=== PATIENT | male | born 1960 | race Caucasian/White ===

== ENCOUNTER 2016-07-16 10:44 | Day surgery (SDC) | payer OTHER ==
[2016-07-14 16:10] LABS: Basophils # (auto) 0 uL; Basophils % (auto) 0.5 % (0.0-2.0); DEFINITIVE VIEW TRANSMISSION; Eosinophils # (auto) 0.2 uL; Eosinophils % (auto) 2.2 % (0.0-7.0); Hematocrit 42.8 % (41.0-53.0); Hemoglobin 13.4 g/dL (13.5-17.5); Lymphocytes # (auto) 2.6 uL; Lymphocytes % (auto) 30.1 % (10.0-50.0); Mean Corpuscular Hemoglobin 26.1 pg (28.0-32.0); Mean Corpuscular Hgb Conc. 31.4 g/dL (32.0-36.0); Mean Corpuscular Volume 83.4 fL (80.0-100.0); Monocytes # (auto) 0.5 uL; Monocytes % (auto) 5.4 % (0.0-12.0); Neutrophils # (auto) 5.4 uL; Neutrophils % (auto) 61.8 % (37.0-80.0); Platelet Count (auto) 449 10^3/uL (140-450); Red Cell Distribution Width 14.7 % (11.6-16.0); White Blood Cell 8.7 10^3/uL (4.4-10.8)
[2016-07-14 16:19] LABS: BUN/Creatinine Ratio 17.2; Calcium 9.5 mg/dL (8.5-10.1); Potassium 4.9 mmol/L (3.5-5.1)
[2016-07-14 16:26] LABS: Urine Bilirubin Negative (Negative); Urine Color Yellow (Yellow); Urine Glucose Normal (Normal); Urine Ketone Negative (Negative); Urine Mucus FEW (None Seen); Urine RBC 18 /hpf (0 - 3); Urine Urobilinogen Normal (Negative)
[2016-07-14 16:28] LABS: INR 1.08 (0.9-1.15); Partial Thromboplastin Time 33.8 sec (22.64-33.71); Prothrombin Time 11.1 sec (9.37-12.3)
[2016-07-14 16:35] LABS: Urine Blood 1+ /uL (Negative); Urine Nitrite POSITIVE (Negative)
[~2016-07-16] VITALS: Ht 198.1 cm; Wt 104.3 kg
[~2016-07-16 10:44] MED LIST: ASPI325T4 PO; GLYB5TAB8 PO; LEVO25TA6 PO; METO25TA5 PO; TAMS0.4C36 PO
[2016-07-16] MEDS ORDERED: ceFAZolin 1GM/50ML D5W 50 ML IV ONE (12:25)
[2016-07-16] MEDS ORDERED: LIDOCAINE 2% JELLY 11ml (GLYDO) ONE (14:25)
[2016-07-16] MEDS ORDERED: PROPOFOL 10 MG/ML 20 ML IV ONE (14:38)
[2016-07-16] MEDS ORDERED: MIDAZOLAM HCL 1MG/1ML-2 ML VIAL ONE (14:38)
[2016-07-16] MEDS ORDERED: fentaNYL CITRATE 100 MCG/2 ML VL ONE (14:38)
[2016-07-16] MEDS ORDERED: GLYCOPYRROLATE 0.2 MG/ML 1ML VIAL ONE (15:23)
[2016-07-16] MEDS ORDERED: NEOSTIGMINE 1 MG/ML INJ (10mg/10ML VIAL) ONE (15:23)
[2016-07-16] MEDS ORDERED: HYDROmorphone HCL 2 MG/ML VL IV PRN (15:45)
[2016-07-16] MEDS ORDERED: MORPHINE SULF INJ 2 MG/ML SYRINGE 1ML IV PRN (15:45)
[2016-07-16] MEDS ORDERED: KETOROLAC TROMETH 30 MG/ML 1ML VIAL IV ONE (15:45)
[2016-07-16] MEDS ORDERED: ePHEDrine SULFATE 50 MG/ML AMP IV PRN (15:45)
[2016-07-16] MEDS ORDERED: LABETALOL HCL 5 MG/ML 4ML SYRINGE IV PRN (15:45)
[2016-07-16] MEDS ORDERED: MIDAZOLAM HCL 1MG/1ML-2 ML VIAL IV PRN (15:45)
[2016-07-16] MEDS ORDERED: ACCU-CHEK COMFORT CURVE STRIP VI ONE (15:45)
[2016-07-16] MEDS ORDERED: ONDANSETRON HCL 4 MG/2 ML VIAL IV ONE (15:45)
[2016-07-16] MEDS ORDERED: BELLADONNA ALKAL/OPIUM (16.2/30MG) RECT SUPP PR ONE ×2 (16:15→17:05)
[2016-07-16] MEDS: hydrALAZINE HCL 20 MG/ML VL IV PRN ×4 (17:00→17:30)
[2016-07-16 18:08] VITALS: BP 157/76
== END 2016-07-16 18:08 | disposition home or self-care (01) ==
LOC: SUR 10:44
PROVIDERS: ATTEND Urology
DX: N40.1 Benign prostatic hyperplasia with lower urinary tract symptoms (principal); E11.9 Type 2 diabetes mellitus without complications; I11.9 Hypertensive heart disease without heart failure; E03.9 Hypothyroidism, unspecified
CPT/HCPCS: 36415; 52601; 80048; 81001; 85025; 85610; 85730; 87086; 87088; 87186; J0360; J0690; J2250; J2405; J2704; J3010; 82962